=== PATIENT | male | born 1955 | race Caucasian/White ===

== ENCOUNTER 2024-06-25 12:12 | Outpatient (CLI) | payer OTHER, SELFPAY | END 2024-06-25 12:13 | disposition home or self-care (01) | LOC: RAD 12:16 | PROVIDERS: PCP Chiropractor; Visit Provider Chiropractor | DX: I25.9 Chronic ischemic heart disease, unspecified (principal); I51.7 Cardiomegaly; I35.1 Nonrheumatic aortic (valve) insufficiency; I34.0 Nonrheumatic mitral (valve) insufficiency | CPT/HCPCS: 93306 ==